=== PATIENT | female | born 1955 | race Native Hawaiian/Other Pacific Islander ===

== ENCOUNTER 2017-02-28 14:21 | Outpatient (CLI) | payer OTHER ==
[~2017-02-28 14:21] MED LIST: FLUOXETINE40 MG PO; FURO20TA67 PO; HYDR25TA60 PO; KLOR-CON 1010 MEQ OR; LEVO0.08 PO; LORTAB1 TAB PO; METF500T PO; METO50TA27 PO; RANI150T78 PO; SIMV40TA57; TRAJENTA PO
[2017-02-28 14:36] LABS: PLATELET COUNT 257 K/uL (152-353)
[2017-02-28 15:09] LABS: SODIUM 137 mmol/L (136-145)
== END 2017-02-28 15:30 | disposition home or self-care (01) ==
LOC: LAB 14:21
PROVIDERS: Nurse Practitioner Family
DX: I10 Essential (primary) hypertension (principal); E78.4 Other hyperlipidemia; E55.9 Vitamin D deficiency, unspecified; E03.8 Other specified hypothyroidism; R53.83 Other fatigue; R53.81 Other malaise; Z79.899 Other long term (current) drug therapy; Z51.81 Encounter for therapeutic drug level monitoring
CPT/HCPCS: 80053; 80061; 82306; 82607; 83036; 84436; 84443; 85027

== ENCOUNTER 2018-06-27 10:49 | Outpatient (CLI) | payer OTHER | END 2018-06-27 19:49 | disposition home or self-care (01) | LOC: MAMMO 10:49 | DX: Z12.31 Encounter for screening mammogram for malignant neoplasm of breast (principal) ==

== ENCOUNTER 2019-08-28 10:40 | Outpatient (CLI) | payer OTHER | END 2019-08-28 16:00 | disposition home or self-care (01) | LOC: RAD 10:40 | DX: M79.605 Pain in left leg (principal); W19.XXXA Unspecified fall, initial encounter; M25.562 Pain in left knee; M54.5 Low back pain ==

== ENCOUNTER 2020-03-29 11:55 | Outpatient (CLI) | payer OTHER ==
[2020-03-29 12:33] LABS: PLATELET COUNT 262 K/uL (152-353)
[2020-03-29 12:41] LABS: POTASSIUM 3.7 mmol/L (3.6-5.2)
== END 2020-03-29 20:57 | disposition home or self-care (01) ==
LOC: RAD 11:55
PROVIDERS: Nurse Practitioner Family
DX: L03.818 Cellulitis of other sites (principal); L02.211 Cutaneous abscess of abdominal wall; R60.0 Localized edema; R06.02 Shortness of breath
CPT/HCPCS: 36415; 80053; 83880; 85027; 87070; 87205

== ENCOUNTER 2020-04-01 13:26 | Outpatient (CLI) | payer OTHER ==
[2020-04-01 13:36] LABS: PLATELET COUNT 287 K/uL (152-353)
[2020-04-01 16:24] LABS: POTASSIUM 3.9 mmol/L (3.6-5.2)
== END 2020-04-01 23:03 | disposition home or self-care (01) ==
LOC: LAB 13:26
PROVIDERS: Internal Medicine Cardiovascular Disease
DX: L03.818 Cellulitis of other sites (principal); L02.211 Cutaneous abscess of abdominal wall; R60.0 Localized edema; R06.02 Shortness of breath; R33.8 Other retention of urine; I10 Essential (primary) hypertension; E11.42 Type 2 diabetes mellitus with diabetic polyneuropathy; E66.01 Morbid (severe) obesity due to excess calories; Z79.899 Other long term (current) drug therapy
CPT/HCPCS: 80048; 81000; 83880; 84443; 85027; 87088

== ENCOUNTER 2020-04-27 09:43 | Outpatient (CLI) | payer OTHER | END 2020-04-27 23:22 | disposition home or self-care (01) | LOC: RESP 09:43 | DX: R06.02 Shortness of breath (principal) ==

== ENCOUNTER 2020-09-22 13:59 | Outpatient (CLI) | payer OTHER | END 2020-09-22 20:11 | disposition home or self-care (01) | LOC: LAB 13:59 | PROVIDERS: ATTEND Nurse Practitioner Family | DX: E11.9 Type 2 diabetes mellitus without complications (principal); K21.9 Gastro-esophageal reflux disease without esophagitis; E03.8 Other specified hypothyroidism; E78.49 Other hyperlipidemia; I10 Essential (primary) hypertension; E66.01 Morbid (severe) obesity due to excess calories; G62.89 Other specified polyneuropathies; R06.02 Shortness of breath; J45.909 Unspecified asthma, uncomplicated; Z15.09 Genetic susceptibility to other malignant neoplasm; R82.998 Other abnormal findings in urine | CPT/HCPCS: 81000; 82043; 82570; 87077; 87086; 87088; 87186 ==

== ENCOUNTER 2020-09-23 08:30 | Outpatient (CLI) | payer OTHER ==
[2020-09-23 09:10] LABS: PLATELET COUNT 251 K/uL (152-353)
[2020-09-23 09:52] LABS: POTASSIUM 4.6 mmol/L (3.6-5.2)
== END 2020-09-23 19:25 | disposition home or self-care (01) ==
LOC: LABW 08:30 → LAB 08:30
PROVIDERS: ATTEND Nurse Practitioner Family
DX: E11.9 Type 2 diabetes mellitus without complications (principal); K21.9 Gastro-esophageal reflux disease without esophagitis; E03.8 Other specified hypothyroidism; E78.49 Other hyperlipidemia; I10 Essential (primary) hypertension; E66.01 Morbid (severe) obesity due to excess calories; G62.89 Other specified polyneuropathies; R06.02 Shortness of breath; J45.909 Unspecified asthma, uncomplicated; Z15.09 Genetic susceptibility to other malignant neoplasm
CPT/HCPCS: 80053; 80061; 83036; 83880; 84439; 84443; 84481; 85027

== ENCOUNTER 2020-11-28 11:54 | Emergency (ER) | payer OTHER ==
[~2020-11-28] VITALS: Ht 157.5 cm; Wt 200.0 kg
[2020-11-28 11:57] VITALS: BP 131/50; TEMP 98.3
[2020-11-28 12:39] LABS: PLATELET COUNT 228 K/uL (152-353)
[2020-11-28 12:46] LABS: POTASSIUM 3.7 mmol/L (3.6-5.2)
== END 2020-11-28 16:49 | disposition home or self-care (01) ==
LOC: ED 11:54
PROVIDERS: Emergency Medicine Emergency Medical Services
DX: E65 Localized adiposity (principal)
CPT/HCPCS: 80048; 81000; 85027; 99283

== ENCOUNTER 2021-04-17 11:24 | Outpatient (CLI) | payer OTHER ==
[2021-04-17 11:45] LABS: PLATELET COUNT 243 K/uL (152-353)
[2021-04-17 12:02] LABS: POTASSIUM 4.3 mmol/L (3.6-5.2)
== END 2021-04-17 21:16 | disposition home or self-care (01) ==
LOC: LAB 11:24
PROVIDERS: ATTEND Nurse Practitioner Family
DX: E11.9 Type 2 diabetes mellitus without complications (principal); Z15.09 Genetic susceptibility to other malignant neoplasm; I10 Essential (primary) hypertension; E78.49 Other hyperlipidemia; E03.8 Other specified hypothyroidism; G62.89 Other specified polyneuropathies; R06.02 Shortness of breath; Z68.45 Body mass index [BMI] 70 or greater, adult; J45.909 Unspecified asthma, uncomplicated; Z79.899 Other long term (current) drug therapy
CPT/HCPCS: 80053; 80061; 81000; 82043; 82306; 82570; 83036; 84439; 84443; 85027; 87077; 87086; 87088; 87186

== ENCOUNTER 2021-05-02 10:49 | Outpatient (CLI) | payer OTHER | END 2021-05-02 19:04 | disposition home or self-care (01) | LOC: LAB 10:49 | PROVIDERS: ATTEND Nurse Practitioner Family | DX: N39.0 Urinary tract infection, site not specified (principal) | CPT/HCPCS: 81000 ==

== ENCOUNTER 2021-09-21 13:38 | Outpatient (CLI) | payer OTHER | END 2021-09-21 21:24 | disposition home or self-care (01) | LOC: MAMMO 13:38 | PROVIDERS: ATTEND Nurse Practitioner Family | DX: N63.13 Unspecified lump in the right breast, lower outer quadrant (principal); N63.10 Unspecified lump in the right breast, unspecified quadrant ==

== ENCOUNTER 2021-09-28 08:49 | Outpatient (CLI) | payer OTHER ==
[~2021-09-28] VITALS: Ht 152.4 cm; Wt 72.6 kg
== END 2021-09-28 19:11 | disposition home or self-care (01) ==
LOC: US 08:49
PROVIDERS: ATTEND Nurse Practitioner Family
DX: N63.10 Unspecified lump in the right breast, unspecified quadrant (principal); R92.8 Other abnormal and inconclusive findings on diagnostic imaging of breast

== ENCOUNTER 2022-05-02 13:36 | Outpatient (CLI) | payer OTHER ==
[2022-05-02 14:09] LABS: PLATELET COUNT 322 K/uL (152-353)
[2022-05-02 14:36] LABS: POTASSIUM 3.9 mmol/L (3.6-5.2)
== END 2022-05-02 18:54 | disposition home or self-care (01) ==
LOC: LABW 13:36
PROVIDERS: ATTEND Internal Medicine Hematology & Oncology
DX: C50.411 Malignant neoplasm of upper-outer quadrant of right female breast (principal); Z85.41 Personal history of malignant neoplasm of cervix uteri; Z08 Encounter for follow-up examination after completed treatment for malignant neoplasm
CPT/HCPCS: 36415; 80053; 85027

== ENCOUNTER 2022-10-16 10:54 | Outpatient (CLI) | payer OTHER | END 2022-10-16 18:57 | disposition home or self-care (01) | LOC: LAB 10:54 | PROVIDERS: ATTEND Nurse Practitioner Family | DX: R19.5 Other fecal abnormalities (principal) | CPT/HCPCS: 82272 ==

== ENCOUNTER 2022-10-17 09:07 | Outpatient (CLI) | payer OTHER | END 2022-10-17 19:13 | disposition home or self-care (01) | LOC: RAD 09:07 | PROVIDERS: ATTEND Nurse Practitioner Family | DX: R13.19 Other dysphagia (principal) ==

== ENCOUNTER 2022-10-29 11:03 | Outpatient (CLI) | payer OTHER ==
[2022-10-29 12:02] LABS: PLATELET COUNT 343 K/uL (152-353)
== END 2022-10-29 19:04 | disposition home or self-care (01) ==
LOC: LABW 11:03
PROVIDERS: ATTEND Internal Medicine Hematology & Oncology
DX: C50.411 Malignant neoplasm of upper-outer quadrant of right female breast (principal); Z85.41 Personal history of malignant neoplasm of cervix uteri; M81.0 Age-related osteoporosis without current pathological fracture; Z08 Encounter for follow-up examination after completed treatment for malignant neoplasm
CPT/HCPCS: 36415; 80053; 85027

== ENCOUNTER 2023-02-04 08:52 | Outpatient (CLI) | payer OTHER ==
[2023-02-04 09:18] LABS: POTASSIUM 4.2 mmol/L (3.6-5.2)
[2023-02-04 09:23] LABS: PLATELET COUNT 323 K/uL (152-353)
== END 2023-02-04 18:53 | disposition home or self-care (01) ==
LOC: LABW 08:52
PROVIDERS: ATTEND Physician Assistant
DX: C50.411 Malignant neoplasm of upper-outer quadrant of right female breast (principal); M81.0 Age-related osteoporosis without current pathological fracture; Z85.41 Personal history of malignant neoplasm of cervix uteri; Z08 Encounter for follow-up examination after completed treatment for malignant neoplasm
CPT/HCPCS: 36415; 80053; 82306; 85027

== ENCOUNTER 2023-02-15 11:15 | Outpatient (CLI) | payer OTHER | END 2023-02-15 19:12 | disposition home or self-care (01) | LOC: US 11:15 | PROVIDERS: ATTEND Nurse Practitioner Family | DX: C50.411 Malignant neoplasm of upper-outer quadrant of right female breast (principal); Z85.41 Personal history of malignant neoplasm of cervix uteri; M81.0 Age-related osteoporosis without current pathological fracture ==

== ENCOUNTER 2023-03-25 09:44 | Outpatient (CLI) | payer OTHER | END 2023-03-25 19:07 | disposition home or self-care (01) | LOC: CT 09:44 | PROVIDERS: ATTEND Nurse Practitioner Family | DX: R42 Dizziness and giddiness (principal) ==

== ENCOUNTER 2023-04-10 10:48 | Outpatient (CLI) | payer OTHER | END 2023-04-10 21:21 | disposition home or self-care (01) | LOC: US 10:48 | PROVIDERS: ATTEND Internal Medicine Cardiovascular Disease | DX: R42 Dizziness and giddiness (principal) ==

== ENCOUNTER 2023-04-30 13:47 | Outpatient (CLI) | payer OTHER | END 2023-04-30 19:00 | disposition home or self-care (01) | LOC: US 13:47 | PROVIDERS: ATTEND Nurse Practitioner Family | DX: R60.0 Localized edema (principal) ==

== ENCOUNTER 2023-05-01 10:18 | Outpatient (CLI) | payer OTHER | END 2023-05-01 19:17 | disposition home or self-care (01) | LOC: US 10:18 | PROVIDERS: ATTEND Nurse Practitioner Family | DX: R60.0 Localized edema (principal) ==